=== PATIENT | male | born 1955 | race Caucasian/White ===

== ENCOUNTER → 2020-04-27 14:12 | Outpatient (CLI) | payer MEDICARE, MEDICAID, SELFPAY ==
[2020-04-27 14:28] LABS: Alanine Aminotransferase 56 U/L (12-78); Albumin Level 4.6 g/dl (3.5-5.0); Albumin/Globulin Ratio 1.2 (1.1-1.8); Alkaline Phosphatase 150 U/L (38-126); Anion Gap 18.5 mEq/L (5-15); Aspartate Amino Transferase 44 U/L (17-59); Bilirubin,Total 0.6 mg/dl (0.2-1.3); Blood Urea Nitrogen 24 mg/dl (9-20); Calcium 10.5 mg/dl (8.4-10.2); Carbon Dioxide 25 mmol/L (22.0-30.0); Chloride 96 mmol/L (98-107); Chol/HDL Ratio 6.3 (1-3.5); Cholesterol 292 mg/dl (140-200); Estimated Glomerular Filt Rate 85 ml/min (>60); GFR (African American) 103 ML/MIN (>60); Globulin 3.7 g/dL (1.3-3.2); Glucose 295 mg/dl (74-100); HDL Cholesterol 46 mg/dl (40-60); Potassium 5.5 mmoL/L (3.5-5.1); Sodium 134 mmol/L (136-145); Total Protein,Serum 8.3 g/dl (6.3-8.2); Triglycerides 318 mg/dl (30-150); VLDL Cholesterol 64 mg/dL (0-40)
[2020-04-27 14:39] LABS: Direct LDL Cholesterol 208.85 mg/dL (100-129)
[2020-04-27 21:00] LABS: Hemoglobin A1C 9.8 % (4.0-6.0)
== END ==
PROVIDERS: Visit Provider Family Medicine
DX: E11.9 Type 2 diabetes mellitus without complications (principal); Z79.4 Long term (current) use of insulin
CPT/HCPCS: 80053; 80061; 83036

== ENCOUNTER → 2020-05-14 14:21 | Outpatient (CLI) | payer MEDICARE, MEDICAID, SELFPAY ==
--- NOTE | 2020-05-14 14:30 | XR_ITS ---
PROCEDURE: XR HIP LT 2-3V W/PELVIS CLINICAL INDICATION: hip pain COMPARISON: No exams were available for comparison FINDINGS: No fracture or dislocation is evident. There is very slight decrease in the joint space medially. No significant spurring. IMPRESSION: Minimal osteoarthritic change left hip Dictated b Danilo Ruiz MD 05/14/2020 15:44 Danilo Ruiz MD in OV 05/14/2020 15:44
--- NOTE | 2020-05-14 14:30 | XR_ITS ---
PROCEDURE: XR HIP RT 2-3V W/PELVIS CLINICAL INDICATION: hip pain COMPARISON: No exams were available for comparison FINDINGS: There is very slight decrease in the hip joint space superiorly with minimal osteosclerosis suggesting minimal osteoarthritic change. Small subchondral cyst noted at the acetabular roof laterally. IMPRESSION: Minimal osteoarthritic change right hip Dictated b Danilo Ruiz MD 05/14/2020 15:43 Danilo Ruiz MD in OV 05/14/2020 15:43
== END ==
PROVIDERS: PCP Family Medicine; Visit Provider Family Medicine
DX: M15.4 Erosive (osteo)arthritis (principal)
CPT/HCPCS: 73502

== ENCOUNTER → 2020-09-06 15:33 | Outpatient (CLI) | payer MEDICARE, MEDICAID, SELFPAY ==
[2020-09-06 16:32] LABS: Microalbumin/Creatinine Ratio 129.8
[2020-09-06 16:46] LABS: Creatinine,Urine Random 63 mg/dL (Not Estab.)
== END ==
PROVIDERS: Visit Provider Family Medicine
DX: E11.9 Type 2 diabetes mellitus without complications (principal); Z79.4 Long term (current) use of insulin
CPT/HCPCS: 82043; 82570

== ENCOUNTER → 2020-09-20 13:58 | Outpatient (CLI) | payer MEDICARE, MEDICAID, SELFPAY ==
[2020-09-20 15:36] LABS: Chloride 101 mmol/L (98-107)
[2020-09-20 15:37] LABS: Potassium 5.1 mmoL/L (3.5-5.1); Sodium 136 mmol/L (136-145)
[2020-09-20 15:38] LABS: Basophils % 0.3 % (0.1-2.0); Eosinophils # 0.2 K/mm3 (0.0-0.4); Eosinophils % 1.7 % (0.1-12.0); Hematocrit 46.5 % (42.0-52.0); Hemoglobin 15.1 g/dL (14.1-18.0); Lymphocytes # 1.9 K/mm3 (0.7-4.5); Lymphocytes % 19.7 % (10-50); Mean Corpuscular HGB Conc 32.5 g/dL (31.8-35.4); Mean Corpuscular Hemoglobin 30.6 pg (27.0-31.2); Mean Platelet Volume 8.9 fl (7.4-10.4); Monocytes # 0.5 K/mm3 (0.1-1.0); Monocytes % 4.9 % (1.7-9.3); Neutrophils % 73.5 % (37.0-80.0); Platelet Count 250 K/mm3 (142-424); Red Blood Count 4.94 M/mm3 (4.60-6.20); Red Cell Distribution Width 14.1 % (11.5-17.5); White Blood Count 9.5 K/mm3 (4.8-10.8)
[2020-09-20 15:39] LABS: Alanine Aminotransferase 41 U/L (12-78); Alkaline Phosphatase 104 U/L (38-126); Anion Gap 14.1 mEq/L (5-15); Aspartate Amino Transferase 58 U/L (17-59); Bilirubin,Total 0.6 mg/dl (0.2-1.3); Blood Urea Nitrogen 23 mg/dl (9-20); Carbon Dioxide 26 mmol/L (22.0-30.0); Estimated Glomerular Filt Rate 75 ml/min (>60); GFR (African American) 91 ML/MIN (>60); Uric Acid 9.4 mg/dl (3.5-8.5)
[2020-09-20 15:40] LABS: Albumin Level 4.4 g/dl (3.5-5.0); Albumin/Globulin Ratio 1.3 (1.1-1.8); Calcium 10.4 mg/dl (8.4-10.2); Chol/HDL Ratio 4.5 (1-3.5); Cholesterol 175 mg/dl (140-200); Globulin 3.4 g/dL (1.3-3.2); Glucose 237 mg/dl (74-100); HDL Cholesterol 39 mg/dl (40-60); Total Protein,Serum 7.8 g/dl (6.3-8.2); Triglycerides 233 mg/dl (30-150); VLDL Cholesterol 47 mg/dL (0-40)
[2020-09-20 15:51] LABS: Direct LDL Cholesterol 104.45 mg/dL (100-129)
[2020-09-20 15:57] LABS: T4 (Thyroxine) 9.1 ug/dl (5.53-11.0)
[2020-09-20 15:59] LABS: Erythrocyte Sedimentation Rate 24 mm/hr (0-20)
[2020-09-20 16:10] LABS: Thyroid Stimulating Hormone 3.29 uIU/mL (0.465-4.68)
[2020-09-21 16:45] LABS: Prostate Specific Ag Screen 0.8 ng/ml (0.0-4.0)
[2020-09-22 12:54] LABS: RA Latex Turbid. <10.0 IU/mL (0.0-13.9)
[2020-09-25 20:10] LABS: Antinuclear Antibodies, IFA Negative (.)
[2020-09-27 02:47] LABS: Testosterone, Total, LC/MS 105.1 ng/dL (264.0-916.0)
== END ==
PROVIDERS: Visit Provider Family Medicine
DX: E11.9 Type 2 diabetes mellitus without complications (principal); G89.29 Other chronic pain; M54.9 Dorsalgia, unspecified; F41.9 Anxiety disorder, unspecified; E66.9 Obesity, unspecified; M19.90 Unspecified osteoarthritis, unspecified site; Z12.5 Encounter for screening for malignant neoplasm of prostate; Z79.4 Long term (current) use of insulin
CPT/HCPCS: 80053; 80061; 84402; 84403; 84436; 84443; 84550; 85025; 85651; 86038; 86431; G0103

== ENCOUNTER → 2021-02-25 17:46 | Outpatient (CLI) | payer MEDICARE, MEDICAID, SELFPAY ==
[2021-02-25 18:14] LABS: Basophils # 0.1 K/mm3 (0-0.2); Basophils % 0.6 % (0.1-2.0); Eosinophils # 0.1 K/mm3 (0.0-0.4); Eosinophils % 1.5 % (0.1-12.0); Hematocrit 43.9 % (42.0-52.0); Hemoglobin 14.5 g/dL (14.1-18.0); Lymphocytes # 2.2 K/mm3 (0.7-4.5); Lymphocytes % 25.2 % (10-50); Mean Corpuscular HGB Conc 33.1 g/dL (31.8-35.4); Mean Corpuscular Hemoglobin 30.2 pg (27.0-31.2); Mean Corpuscular Volume 91.2 fl (80-94); Mean Platelet Volume 8.2 fl (7.4-10.4); Monocytes # 0.5 K/mm3 (0.1-1.0); Monocytes % 5.5 % (1.7-9.3); Neutrophils # 5.9 K/mm3 (1.8-7.8); Neutrophils % 67.2 % (37.0-80.0); Platelet Count 250 K/mm3 (142-424); Red Blood Count 4.81 M/mm3 (4.60-6.20); Red Cell Distribution Width 14.2 % (11.5-17.5); White Blood Count 8.7 K/mm3 (4.8-10.8)
[2021-02-25 19:38] LABS: Alanine Aminotransferase 50 U/L (12-78); Albumin Level 4.7 g/dl (3.5-5.0); Albumin/Globulin Ratio 1.5 (1.1-1.8); Alkaline Phosphatase 129 U/L (38-126); Anion Gap 14.6 mEq/L (5-15); Aspartate Amino Transferase 46 U/L (17-59); Bilirubin,Total 0.5 mg/dl (0.2-1.3); Blood Urea Nitrogen 30 mg/dl (9-20); Carbon Dioxide 26 mmol/L (22.0-30.0); Chloride 101 mmol/L (98-107); Cholesterol 252 mg/dl (140-200); Estimated Glomerular Filt Rate 67 ml/min (>60); GFR (African American) 81 ML/MIN (>60); Globulin 3.2 g/dL (1.3-3.2); HDL Cholesterol 42 mg/dl (40-60); Potassium 4.6 mmoL/L (3.5-5.1); Sodium 137 mmol/L (136-145); Total Protein,Serum 7.9 g/dl (6.3-8.2); Triglycerides 312 mg/dl (30-150); VLDL Cholesterol 62 mg/dL (0-40)
[2021-02-25 19:50] LABS: Direct LDL Cholesterol 180.29 mg/dL (100-129)
[2021-02-25 19:57] LABS: T4 (Thyroxine) 7.5 ug/dl (5.53-11.0)
[2021-02-25 20:10] LABS: Thyroid Stimulating Hormone 1.77 uIU/mL (0.465-4.68)
[2021-02-25 20:11] LABS: Calcium 9.9 mg/dl (8.4-10.2); Glucose 234 mg/dl (74-100)
[2021-02-25 20:38] LABS: Hemoglobin A1C 8.4 % (4.0-6.0)
== END ==
PROVIDERS: Visit Provider Family Medicine
DX: E11.9 Type 2 diabetes mellitus without complications (principal); G89.29 Other chronic pain; M54.9 Dorsalgia, unspecified; E66.9 Obesity, unspecified; F41.9 Anxiety disorder, unspecified; Z68.41 Body mass index [BMI] 40.0-44.9, adult; Z79.84 Long term (current) use of oral hypoglycemic drugs
CPT/HCPCS: 80053; 80061; 83036; 84436; 84443; 85025

== ENCOUNTER → 2021-09-26 14:10 | Outpatient (CLI) | payer MEDICARE, MEDICAID, SELFPAY ==
[2021-09-26 20:14] LABS: Amphetamine/Metha Screen,Urine Negative ng/ml (<1000)
[2021-09-26 20:15] LABS: Barbiturates Screen,Urine Negative ng/ml (<200)
[2021-09-26 20:16] LABS: Benzodiazepines Screen,Urine Negative ng/ml (<200); Cannabinoid Screen,Urine Negative ng/ml (<50)
[2021-09-26 20:17] LABS: Cocaine Screen,Urine Negative ng/ml (<300); Methadone Screen,Urine Negative ng/ml (<300)
[2021-09-26 20:18] LABS: Opiate Screen,Urine Negative ng/ml (<300)
[2021-09-26 20:19] LABS: Phencyclidine Screen,Urine Negative ng/ml (<25)
== END ==
PROVIDERS: Visit Provider Family Medicine
DX: G89.29 Other chronic pain (principal); M54.9 Dorsalgia, unspecified
CPT/HCPCS: 80305

== ENCOUNTER → 2021-10-11 13:38 | Outpatient (CLI) | payer MEDICARE, MEDICAID, SELFPAY ==
[2021-10-11 14:24] LABS: Hemoglobin A1C 9.3 % (4.0-6.0)
== END ==
PROVIDERS: Visit Provider Family Medicine
DX: E11.9 Type 2 diabetes mellitus without complications (principal); Z79.4 Long term (current) use of insulin
CPT/HCPCS: 83036

== ENCOUNTER → 2022-01-20 10:08 | Outpatient (CLI) | payer MEDICARE, MEDICAID, SELFPAY | PROVIDERS: Visit Provider Internal Medicine | DX: Z11.52 Encounter for screening for COVID-19 (principal) | CPT/HCPCS: C9803; U0003; U0005 ==

== ENCOUNTER 2022-01-22 09:48 | Day surgery (SDC) | payer MEDICARE, MEDICAID, SELFPAY ==
[2022-01-15 12:42] VITALS: BMI 43.2
[2022-01-22 10:01] VITALS: BP 181/90; PULSE 75; RESP 18; TEMP 36.2; O2SAT 94
--- NOTE | 2022-01-22 10:25 | HMH.ANESCL ---
[facility] Anesthesia Checklist - Patient Identification Patient Identification: Arm Band - Structural Data Admitted From: Home Planned Operative Procedure/s: Colonoscopy Consent for Planned Operative Procedure(s) Verified: Yes - NPO Status Verified Time NPO: 05:30 (Prep) - Airway Assessment C-Spine Mobility Assessed: Yes TMJ Mobility Assessed: Yes Dentition: Good Dentition - Neurological Assessment Level of Consciousness: Awake Hx Seizures: No Numbness or tingling in extremities: Yes - Anesthesia Plan Anesthesia Risk discussed: Yes Anesthesia Plan: Verified ASA Class: III Anesthesia Type: MAC [facility] History I have reviewed the patient's past medical history: Yes Medical History: Reports:: Anxiety, Depression, Diabetes Mellitus Type 2, Hyperlipidemia, Hypertension Denies:: Cancer, Diabetes Mellitus Type 1, Internal Pacemaker, MRSA, Seizures *Have you ever received a pneumonia vaccine?: Yes *Have you received a flu vaccine this season?: Yes Other Medical History: Reports: Arthritis Anesthesia experience/problems:: None Laterality Cases: Bilateral: Carpal Tunnel Release Other Surgeries: No: Pacemaker Amputation: Yes - *Social History Last grade of school completed: GED Smoking Status: Never smoker Alcohol Intake: never Substance Use Type: denies use *Occupational Status:: retired Housing: house Household Members: spouse *Travel in the last 8 weeks: None - Psychiatric History Pschychiatric History:: Reports:: Anxiety, Depression Family Hx:: Unable to obtain
[2022-01-22 11:10] VITALS: O2SAT 94
--- NOTE | 2022-01-22 11:29 | HMH.SCOPE ---
- Procedure: Date: 01/22/22 Patient Date of :: 1955 Procedure Performed:: Colonoscopy Indications:: The patient is a 66 year old that presents for screening colonoscopy Performing Provider:: Roberto Madison MD Referring Provider:: Alejandro Carlisle MD Sedation:: See RN records Procedure:: After placing the patient in the left lateral decubitus position, the colonoscopy was gently inserted into the rectum and under direct visualization advanced to the cecum which was identified by transillumination in the right lower quadrant, identification of the ileocecal valve, appendiceal orifice, and cecal strap. Color, texture, mucosa, and anatomy of the colon were carefully examined with the scope. Findings:: Anal canal: normal Rectum: normal Sigmoid colon: mild diverticulosis Descending colon: normal without polyps or inflammatory changes Splenic flexure: normal Transverse colon: normal without polyps or inflammatory changes Hepatic flexure: normal Ascending colon: normal without polyps or inflammatory changes Cecum: normal Terminal ileum: not visualized Recommendations:: Higher fiber diet Repeat colonoscopy in 10 years or sooner if clinically indicated Complications:: None Estimated blood obtained (mL): 0
[2022-01-22 11:32] VITALS: BP 139/86; PULSE 80; RESP 16; TEMP 36.3; O2SAT 99
[2022-01-22 11:42] VITALS: BP 125/81; PULSE 69; RESP 16; TEMP 36.3; O2SAT 93
[2022-01-22 11:52] VITALS: BP 135/76; PULSE 72; RESP 18; TEMP 36.3; O2SAT 95
[2022-01-22 12:02] VITALS: BP 140/80; PULSE 70; RESP 18; TEMP 36.3; O2SAT 70
[2022-07-03 10:59] LABS: POC Glucose,Bedside 157 (70-110)
== END 2022-01-22 12:02 | disposition home or self-care (01) ==
LOC: OUTP 09:50
PROVIDERS: PCP Family Medicine; Visit Provider Internal Medicine
PROC: 0DJD8ZZ Inspection of Lower Intestinal Tract, Via Natural or Artificial Opening Endoscopic (ICD-10-PCS; CPT 45378; principal; 2022-01-22 10:30)
DX: Z12.11 Encounter for screening for malignant neoplasm of colon (principal); K57.30 Diverticulosis of large intestine without perforation or abscess without bleeding; F41.9 Anxiety disorder, unspecified; F32.A Depression, unspecified; E11.9 Type 2 diabetes mellitus without complications; E78.5 Hyperlipidemia, unspecified; I10 Essential (primary) hypertension; M19.90 Unspecified osteoarthritis, unspecified site; Z79.4 Long term (current) use of insulin; Z79.51 Long term (current) use of inhaled steroids; Z79.899 Other long term (current) drug therapy
CPT/HCPCS: G0121; 82962

== ENCOUNTER 2022-03-14 08:26 | Emergency (ER) | payer MEDICARE, MEDICAID, SELFPAY ==
[2022-03-14 08:33] VITALS: BP 149/80; PULSE 64; RESP 16; TEMP 37; O2SAT 98; BMI 41.8
[2022-03-14 08:40] VITALS: BP 149/80; PULSE 64; RESP 16; TEMP 37; O2SAT 98; BMI 42.0
--- NOTE | 2022-03-14 08:48 | HMH.EDUTC ---
[facility] [place] Impression: Pain of right clavicle, Tendinopathy of right shoulder Right shoulder pain Qualifiers: Chronicity: acute Qualified Code(s): M25.511 - Pain in right shoulder Disposition: Home, Self-Care Condition on Discharge: Good Instructions: Shoulder Tendinopathy, DI for Shoulder Pain Additional Instructions: Rest the extremity. Take ibuprofen for pain. I sent in a prescription to your pharmacy. Follow up with Dr. Dumont (orthopedics). I put in a referral but you need to call his office and schedule an appointment. Follow up with your regular doctor. GO TO THE ER FOR ANY WORSENING SYMPTOMS Prescriptions: Ibuprofen [Ibuprofen 600mg Tablet] 600 mg PO Q6HP PRN #30 tab PRN Reason: Mild Pain Transmission Status: Received by [facility] Referrals: Alejandro Carlisle MD [Primary Care Provider] - Ventura Dumont MD [Staff Physician] - Time of Disposition: 09:30 Medical Decision Making - Medical Records Medical records reviewed: No: I reviewed the patient's medical records. - Prashant Inquiry Pt receiving controlled substance: No Vital Signs: 03/14/22 08:33 03/14/22 08:40 03/14/22 09:21 Temperature 98.6 F 98.6 F 98.6 F Temperature Source Oral Oral Pulse Rate 64 Pulse Rate [Right] 64 64 Respiratory Rate 16 16 16 Blood Pressure 149/80 H Blood Pressure [Right Arm] 149/80 H 149/80 H Blood Pressure Mean [Right Arm] 103 103 Blood Pressure Source [Right Arm] Automatic Cuff Automatic Cuff Blood Pressure Position [Right Arm] Sitting Sitting 02 Sat by Pulse Oximetry 98 98 Oxygen Delivery Method Room Air Room Air - Radiology Data #1 Image(s): Shoulder Image Reviewed: Yes I reviewed the patient's radiology image, Yes I have reviewed radiologist's interpretation Preliminary Findings: No Fracture Seen FINAL REPORT CLINICAL HISTORY: painful to move,feel like it catching no known injury FINDINGS: RIGHT SHOULDER Three views demonstrate no acute fracture or dislocation. There is mild acromioclavicular and mild glenohumeral joint degenerative change. The visualized bony structures are well aligned. No soft tissue abnormality is seen. IMPRESSION: Degenerative changes with no acute process. Reviewed, Interpreted and Dictated by Jesús Christiansen III, MD Transcribed by Sandi Easton Authenticated and [facility] HPI - General Stated complaint: right shoulder pain, no accident Time Seen by Provider: 03/14/22 08:48 Mode of Arrival: Ambulatory Source of Information: Patient Limitations: No Limitations Description of Symptoms (Recalled from Triage Doc. by RN): Pt advises he is having pain in his right collar bone and shoulder. Advises it has been hurting for a couple of days and it feels like there is something grinding when he moves it. Denies any known injury - History of Present Illness Provider Complaint: He has been having right shoulder pain that is worse with movement for the past 2 weeks. He denies any injury. The pain has worsened is why he came in today. He has a history of rotator cuff surgery in that shoulder about 15 years ago. He has had no trouble until now. He denies any chest pain. He denies any other complaints. - Related Data Home Medications Medication Instructions Recorded Confirmed albuterol sulfate 90 mcg/actuation 90 mcg INHALATION DAILY 10/11/21 02/21/22 aerosol inhaler Atorvastatin Calcium [Lipitor 40mg 40 mg PO DAILY 01/15/22 02/21/22 Tab] Duloxetine HCl [Cymbalta] 60 mg PO DAILY 01/15/22 02/21/22 Insulin Degludec [Tresiba See Rx Instructions .ROUTE .COMPLEX 01/15/22 02/21/22 FlexTouch U-200] Meloxicam See Rx Instructions .ROUTE .COMPLEX 01/15/22 02/21/22 Ropinirole HCl See Rx Instructions .ROUTE .COMPLEX 01/15/22 02/21/22 Sodium, Potassium,Mag Sulfates 16 oz PO ONCE 01/15/22 02/21/22 [Suprep Bowel Prep Kit]
--- NOTE | 2022-03-14 08:53 | XR_ITS ---
FINAL REPORT CLINICAL HISTORY: painful to move,feel like it catching no known injury FINDINGS: RIGHT SHOULDER Three views demonstrate no acute fracture or dislocation. There is mild acromioclavicular and mild glenohumeral joint degenerative change. The visualized bony structures are well aligned. No soft tissue abnormality is seen. IMPRESSION: Degenerative changes with no acute process. Reviewed, Interpreted and Dictated by Jesús Christiansen III, MD Transcribed by Sandi Easton Authenticated and [facility]
[2022-03-14 09:21] VITALS: BP 149/80; PULSE 64; RESP 16; TEMP 37; O2SAT 98
== END 2022-03-14 09:34 | disposition home or self-care (01) ==
PROVIDERS: Emergency Provider Nurse Practitioner Family; PCP Family Medicine
DX: M25.511 Pain in right shoulder (principal); Z79.4 Long term (current) use of insulin; Z79.51 Long term (current) use of inhaled steroids; Z79.899 Other long term (current) drug therapy; Z87.39 Personal history of other diseases of the musculoskeletal system and connective tissue; F41.9 Anxiety disorder, unspecified; F32.A Depression, unspecified; E11.9 Type 2 diabetes mellitus without complications; E78.5 Hyperlipidemia, unspecified; I10 Essential (primary) hypertension
CPT/HCPCS: 73030; 99283

== ENCOUNTER → 2022-03-21 14:50 | Outpatient (CLI) | payer MEDICARE, MEDICAID, SELFPAY ==
[2022-03-21 13:55] LABS: Hemoglobin A1C 9.3 % (4.0-6.0)
== END ==
PROVIDERS: PCP Family Medicine; Visit Provider Family Medicine
DX: E11.9 Type 2 diabetes mellitus without complications (principal); Z79.4 Long term (current) use of insulin
CPT/HCPCS: 83036

== ENCOUNTER → 2022-11-04 10:00 | Outpatient (CLI) | payer MEDICARE, MEDICAID, SELFPAY ==
[2022-11-04 19:35] LABS: Alanine Aminotransferase 25 U/L (12-78); Albumin Level 4.1 g/dl (3.5-5.0); Albumin/Globulin Ratio 1.4 (1.1-1.8); Alkaline Phosphatase 105 U/L (38-126); Aspartate Amino Transferase 32 U/L (17-59); Bilirubin,Total 0.5 mg/dl (0.2-1.3); Blood Urea Nitrogen 20 mg/dl (9-20); Calcium 9.2 mg/dl (8.4-10.2); Carbon Dioxide 26 mmol/L (22.0-30.0); Chloride 104 mmol/L (98-107); Chol/HDL Ratio 4.2 (1-3.5); Cholesterol 160 mg/dl (140-200); Estimated Glomerular Filt Rate 75 ml/min (>60); GFR (African American) 90 ML/MIN (>60); Glucose 190 mg/dl (74-100); HDL Cholesterol 38 mg/dl (40-60); Sodium 137 mmol/L (136-145); Total Protein,Serum 7.1 g/dl (6.3-8.2); Triglycerides 139 mg/dl (30-150); VLDL Cholesterol 28 mg/dL (0-40)
[2022-11-04 19:40] LABS: Hemoglobin A1C 8.8 % (4.0-6.0)
[2022-11-04 19:46] LABS: Direct LDL Cholesterol 95.22 mg/dL (100-129)
== END ==
PROVIDERS: PCP Family Medicine; Visit Provider Family Medicine
DX: E11.51 Type 2 diabetes mellitus with diabetic peripheral angiopathy without gangrene (principal); Z79.4 Long term (current) use of insulin
CPT/HCPCS: 80053; 80061; 83036

== ENCOUNTER → 2023-03-23 09:31 | Outpatient (CLI) | payer MEDICARE, MEDICAID, SELFPAY ==
[2023-03-23 18:33] LABS: Alanine Aminotransferase 26 U/L (12-78); Albumin Level 4.1 g/dl (3.5-5.0); Albumin/Globulin Ratio 1.3 (1.1-1.8); Alkaline Phosphatase 146 U/L (38-126); Anion Gap 18.9 mEq/L (5-15); Aspartate Amino Transferase 31 U/L (17-59); Bilirubin,Total 0.5 mg/dl (0.2-1.3); Blood Urea Nitrogen 20 mg/dl (9-20); Calcium 9.4 mg/dl (8.4-10.2); Carbon Dioxide 26 mmol/L (22.0-30.0); Chloride 97 mmol/L (98-107); Chol/HDL Ratio 4.2 (1-3.5); Cholesterol 157 mg/dl (140-200); Estimated Glomerular Filt Rate 84 ml/min (>60); GFR (African American) 102 ML/MIN (>60); Globulin 3.2 g/dL (1.3-3.2); Glucose 258 mg/dl (74-100); HDL Cholesterol 37 mg/dl (40-60); Potassium 4.9 mmoL/L (3.5-5.1); Sodium 137 mmol/L (136-145); Total Protein,Serum 7.3 g/dl (6.3-8.2); Triglycerides 222 mg/dl (30-150); VLDL Cholesterol 44 mg/dL (0-40)
[2023-03-23 18:39] LABS: Hemoglobin A1C 8.4 % (4.0-6.0)
[2023-03-23 18:43] LABS: Direct LDL Cholesterol 90.12 mg/dL (100-129)
== END ==
PROVIDERS: PCP Family Medicine; Visit Provider Family Medicine
DX: Z76.0 Encounter for issue of repeat prescription (principal); E11.51 Type 2 diabetes mellitus with diabetic peripheral angiopathy without gangrene; Z79.4 Long term (current) use of insulin
CPT/HCPCS: 80053; 80061; 83036

== ENCOUNTER → 2023-04-09 11:40 | Outpatient (CLI) | payer MEDICARE, MEDICAID, SELFPAY ==
[2023-04-09 19:22] LABS: Lipase 138 U/L (23-300)
[2023-04-09 19:23] LABS: Basophils % 0.3 % (0.1-2.0); Eosinophils # 0.2 K/mm3 (0.0-0.4); Eosinophils % 1.7 % (0.1-12.0); Hematocrit 45.1 % (42.0-52.0); Hemoglobin 14.5 g/dL (14.1-18.0); Lymphocytes # 1.9 K/mm3 (0.7-4.5); Lymphocytes % 18.8 % (10-50); Mean Corpuscular HGB Conc 32.3 g/dL (31.8-35.4); Mean Corpuscular Hemoglobin 29.3 pg (27.0-31.2); Mean Corpuscular Volume 90.7 fl (80-94); Mean Platelet Volume 9.3 fl (7.4-10.4); Monocytes # 0.4 K/mm3 (0.1-1.0); Monocytes % 4.3 % (1.7-9.3); Neutrophils # 7.8 K/mm3 (1.8-7.8); Platelet Count 279 K/mm3 (142-424); Red Blood Count 4.97 M/mm3 (4.60-6.20); Red Cell Distribution Width 13.9 % (11.5-17.5); White Blood Count 10.4 K/mm3 (4.8-10.8)
== END ==
PROVIDERS: PCP Family Medicine; Visit Provider Family Medicine
DX: R10.9 Unspecified abdominal pain (principal)
CPT/HCPCS: 83690; 85025

== ENCOUNTER → 2023-07-27 08:23 | Outpatient (CLI) | payer MEDICARE, MEDICAID, SELFPAY ==
[2023-07-27 19:01] LABS: Chloride 97 mmol/L (98-107); Potassium 4.2 mmoL/L (3.5-5.1); Sodium 134 mmol/L (136-145)
[2023-07-27 19:04] LABS: Alanine Aminotransferase 28 U/L (12-78); Albumin Level 3.3 g/dl (3.5-5.0); Albumin/Globulin Ratio 1.1 (1.1-1.8); Alkaline Phosphatase 121 U/L (38-126); Anion Gap 11.2 mEq/L (5-15); Aspartate Amino Transferase 36 U/L (17-59); Bilirubin,Total 0.5 mg/dl (0.2-1.3); Blood Urea Nitrogen 22 mg/dl (9-20); Carbon Dioxide 30 mmol/L (22.0-30.0); Estimated Glomerular Filt Rate 43 ml/min (>60); GFR (African American) 52 ML/MIN (>60); Globulin 3.1 g/dL (1.3-3.2); Total Protein,Serum 6.4 g/dl (6.3-8.2)
[2023-07-27 19:05] LABS: Calcium 8.9 mg/dl (8.4-10.2); Glucose 156 mg/dl (74-100)
[2023-07-27 19:38] LABS: Basophils # 0.1 K/mm3 (0-0.2); Basophils % 0.4 % (0.1-2.0); Eosinophils # 0.1 K/mm3 (0.0-0.4); Hematocrit 37.3 % (42.0-52.0); Hemoglobin 12.5 g/dL (14.1-18.0); Lymphocytes # 1.9 K/mm3 (0.7-4.5); Lymphocytes % 15.5 % (10-50); Mean Corpuscular HGB Conc 33.6 g/dL (31.8-35.4); Mean Corpuscular Hemoglobin 30.3 pg (27.0-31.2); Mean Platelet Volume 8.9 fl (7.4-10.4); Monocytes # 0.9 K/mm3 (0.1-1.0); Monocytes % 7.2 % (1.7-9.3); Neutrophils % 75.8 % (37.0-80.0); Platelet Count 279 K/mm3 (142-424); Red Blood Count 4.15 M/mm3 (4.60-6.20); White Blood Count 11.9 K/mm3 (4.8-10.8)
== END ==
PROVIDERS: PCP Family Medicine; Visit Provider Family Medicine
DX: E11.51 Type 2 diabetes mellitus with diabetic peripheral angiopathy without gangrene (principal); M79.671 Pain in right foot; Z79.4 Long term (current) use of insulin; L03.115 Cellulitis of right lower limb; B96.89 Other specified bacterial agents as the cause of diseases classified elsewhere
CPT/HCPCS: 80053; 83036; 85025; 87070; 87205

== ENCOUNTER → 2023-08-13 23:37 | Outpatient (CLI) | payer MEDICARE, MEDICAID, SELFPAY ==
[2023-08-13 22:04] LABS: Alanine Aminotransferase 23 U/L (12-78); Albumin Level 4.1 g/dl (3.5-5.0); Alkaline Phosphatase 111 U/L (38-126); Anion Gap 18.3 mEq/L (5-15); Aspartate Amino Transferase 26 U/L (17-59); Bilirubin,Total 0.2 mg/dl (0.2-1.3); Blood Urea Nitrogen 29 mg/dl (9-20); Calcium 10.2 mg/dl (8.4-10.2); Carbon Dioxide 26 mmol/L (22.0-30.0); Chloride 97 mmol/L (98-107); Estimated Glomerular Filt Rate 74 ml/min (>60); GFR (African American) 90 ML/MIN (>60); Glucose 185 mg/dl (74-100); Potassium 5.3 mmoL/L (3.5-5.1); Sodium 136 mmol/L (136-145); Total Protein,Serum 8.1 g/dl (6.3-8.2)
== END ==
PROVIDERS: PCP Family Medicine; Visit Provider Family Medicine
DX: L97.519 Non-pressure chronic ulcer of other part of right foot with unspecified severity (principal)
CPT/HCPCS: 80053

== ENCOUNTER 2023-11-05 23:01 | Outpatient (CLI) | payer MEDICARE, MEDICAID, SELFPAY ==
[2023-11-05 19:22] LABS: Alanine Aminotransferase 21 U/L (12-78); Albumin Level 4.2 g/dl (3.5-5.0); Albumin/Globulin Ratio 1.2 (1.1-1.8); Alkaline Phosphatase 107 U/L (38-126); Anion Gap 13.5 mEq/L (5-15); Aspartate Amino Transferase 27 U/L (17-59); Bilirubin,Total 0.4 mg/dl (0.2-1.3); Blood Urea Nitrogen 18 mg/dl (9-20); Calcium 9.8 mg/dl (8.4-10.2); Carbon Dioxide 25 mmol/L (22.0-30.0); Chloride 104 mmol/L (98-107); Estimated Glomerular Filt Rate 74 ml/min (>60); GFR (African American) 90 ML/MIN (>60); Globulin 3.6 g/dL (1.3-3.2); Glucose 110 mg/dl (74-100); Potassium 4.5 mmoL/L (3.5-5.1); Sodium 138 mmol/L (136-145); Total Protein,Serum 7.8 g/dl (6.3-8.2)
[2023-11-05 19:47] LABS: Prostate Specific Ag Screen 1.2 ng/ml (0.0-4.0)
[2023-11-05 19:56] LABS: Hemoglobin A1C 7.4 % (4.0-6.0)
== END 2023-11-05 23:59 ==
LOC: LAB.DROPOF 23:01
PROVIDERS: PCP Family Medicine; Visit Provider Family Medicine
DX: E11.9 Type 2 diabetes mellitus without complications (principal); Z12.5 Encounter for screening for malignant neoplasm of prostate; Z79.4 Long term (current) use of insulin; Z79.84 Long term (current) use of oral hypoglycemic drugs; Z79.85 Long-term (current) use of injectable non-insulin antidiabetic drugs
CPT/HCPCS: 80053; 83036; G0103

== ENCOUNTER 2024-02-05 18:00 | Outpatient (CLI) | payer MEDICARE, MEDICAID, SELFPAY ==
[2024-02-05 18:45] LABS: Hemoglobin A1C 9.4 % (4.0-6.0)
[2024-02-05 18:55] LABS: Alanine Aminotransferase 22 U/L (12-78); Albumin Level 4.2 g/dl (3.5-5.0); Albumin/Globulin Ratio 1.1 (1.1-1.8); Alkaline Phosphatase 113 U/L (38-126); Anion Gap 11.8 mEq/L (5-15); Aspartate Amino Transferase 29 U/L (17-59); Bilirubin,Total 0.6 mg/dl (0.2-1.3); Blood Urea Nitrogen 19 mg/dl (9-20); Calcium 10.2 mg/dl (8.4-10.2); Carbon Dioxide 30 mmol/L (22.0-30.0); Chloride 101 mmol/L (98-107); Estimated Glomerular Filt Rate 67 ml/min (>60); GFR (African American) 81 ML/MIN (>60); Globulin 3.8 g/dL (1.3-3.2); Glucose 237 mg/dl (74-100); Potassium 4.8 mmoL/L (3.5-5.1); Sodium 138 mmol/L (136-145)
== END 2024-02-05 23:59 | disposition home or self-care (01) ==
LOC: LAB.DROPOF 02-06 09:17
PROVIDERS: PCP Family Medicine; Visit Provider Family Medicine
DX: E11.51 Type 2 diabetes mellitus with diabetic peripheral angiopathy without gangrene (principal); Z79.4 Long term (current) use of insulin; Z79.85 Long-term (current) use of injectable non-insulin antidiabetic drugs
CPT/HCPCS: 80053; 83036

== ENCOUNTER 2025-06-28 10:39 | Outpatient (CLI) | payer MEDICARE, MEDICAID, SELFPAY ==
--- OUTSIDE RECORDS SUMMARY | 2025-05-10 08:15 | XMS_ITS | Encounter Summary ---
Author Organization [facility] Address [address] [place] [address] Care Team Providers Care Sausage Smoker Name Role Phone Antonino Tavarez DPM Unavailable Alejandro Carlisle MD Primary Care Provider [phone] Reason for Visit * Reason Comments Post-Operative Exam Encounter Details Date Type Department Care Team (Late st Contact Info) Description 05/10/2025 8:15 AM EDT Office Visit [facility] [address] [place] [address] Eric Whitten APRN [address] [place] [address] Carpal tunnel syndrome, left (Primary Dx); Cubital tunnel syndrome, left Social History Tobacco Use Types Packs/Day Years Used Date Smoking Tobacco: Never Smokeless Tobacco: Never Alcohol Use Standard Drinks/Week Comments No 0 (1 standard drink = 0.6 oz pur e alcohol) [facility] Utilities Answer Date Recorded In the past 12 months has e electric, gas, oil, or water company threatened to shut off services in your home? No 01/26/2024 Overall Financial Resource Strain (CARDIA) Answe r Date Recorded How hard is it for you to pa y for the very basics like food, housing, medical care, and heating? Not hard at all 01/26/2024 PHQ-2 Answer Date Recorded PHQ-2 Total Score 0 01/26/2024 [facility] of Occupat ional Health - Occupational Stress Questionnaire Answer Date Recorded Do you feel stress - tense, restless, nervous, or anxious, or unable to sleep at night because your mind is troubled all the time - these days? Not at all 01/26/2024 Exercise Vital Sign Answer Date Recorde d On average, how many days pe r week do you engage in moderate to strenuous exercise (like a brisk walk)? 0 days 01/26/2024 On average, how many minutes do you engage in exercise at this level? 0 min 01/26/2024 Hunger Vital Sign Answer Date Recorded Within the past 12 months, y ou worried that your food would run out before you got the money to buy more. Never true 01/26/20 24 Within the past 12 months, t he food you bought just didn't last and you didn't have money to get more. Never true 01/26/2024 PRAPARE - Transportation Answer Date Re corded In the past 12 months, has l ack of transportation kept you from medical appointments or from getting medications? No 09/04 In the past 12 months, has l ack of transportation kept you from meetings, work, or from getting things needed for daily living? No 09/17/2023 [facility] IP Transportation Answer D ate Recorded In the past 12 months, has l ack of reliable transportation kept you from medical appointments, meetings, work or from getting things needed for daily living? No 01/26/2024 Sex and Gender Information Value Date Recorded Sex Assigned at Not on file Legal Sex Male 4:02 PM EDT Gender Identity Not on file Sexual Orientation Not on file documented as of this encounter Functional Status * Is the person deaf or does he/she have serious difficulty hearing? Answer Date of Assessment Author No 01/31/2024 10:20 AM Tali Villanueva RN * Is the person blind or does he/she have serious difficulty seeing even when wearing glasses? Answer Date of Assessment Author No 01/31/2024 10:20 AM Tali Villanueva RN * Does this person have serious difficulty walking or climbing stairs? Answer Date of Assessment Author Yes 01/31/2024 10:20 AM Tali Villanueva, JEFFREY * Does this person have difficulty dressing or bathing? Answer Date of Assessment Author No 01/31/2024 10:20 AM EDT Tali Easton RN * Because of a physical, mental or emotional condition, does this person have difficulty doing errands alone such as visiting a doctor's office or shopping? Answer Date of Assessment Author Yes 01/31/2024 10:20 AM EDT Tali Easton RN documented as of this encounter Mental Status * Because of a physical, mental or emotional condition, does this person have serious difficulty concentrating, remembering or making decisions? Answer Entry Date Author No 01/31/2024 10:20 AM EDT Tali Easton RN documented in this encounter Progress Notes * Eric Whitten APRN - 05/10/2025 8:15 AM EDT Images from the original note were not included. Chief Complaint: Cubital Tunnel Release / Nerve Transposition / Decompression - Left and Carpal Tunnel Release - Left DOS: 04/27/2025 History: Does report improvement of the symptoms along the dorsal ulnar sensory nerve distribution but stillhaving some numbness tingling of the thumb and index finger. Reports possible minimal improvement of his preoperative numbness tingling. Physical Exam: Incision is healing well, sutures in place No signs of infection Neurologically intact Plan: Sutures removed. Ok to shower. No bath/pools for one more week. Discussed and provided handout on scar massage and pillar pain. Home hand therapy program given to patient. No indication for formal hand therapy at this time - if patient's ROM not returned to baseline in 2weeks, patient will call for referral to hand therapy. I discussed the prolonged nature of recovery with nerve compression specifically along the ulnar nerve but as well as the median nerve. I discussed full result of surgery not until 12 to 18 months. He expressed understanding Follow-up in 3 months for evaluation The supervising/collaborating provider for the technical component of the x-rays is Dr. Latif. and Hand & Upper Extremity Please note that this software test analyst was created using voice recognition software. Any errors are unintentional and may be due to voice recognition software test analyst. documented in this encounter Plan of Treatment Not on file documented as of this encounter Goals Goal Patient Goal Type Associated Problems Recent Progress Patient-Stated? Author Wound Healing General On track(2022 9:11 AM EST) Alyson Salcido RN Note: Wound Care Goals #10, #11 right calcaneous Patient is an active participant in their wound care plan. Patient is attending wound care visits regularly as recommended by physician. Patient is following instructions on treatment plan including follow up appointments, dressing change recommendations, pressure relief if applicable, smoking cessation if applicable, monitoring of blood sugar and diet. Patient notifies wound care staff of any problems. Wound volume reduction goals 50% by week 4 50% by week 8 80% by week 12 100% by week 14 Nursing Diagnosis: Impairment of skin integrity as evidence by open wound. Risk for infection related to open wound. Nursing Interventions to assist with healing of Diabetic Wounds Assess pain status. Assess wound size, isela wound, drainage and odor. Educate patient and caregivers on signs and symptoms of infection, wound care and importance of prompt treatment. Assess patient/caregiver level of knowledge regarding diabetes, risk factors and diabetic foot care. Assess for peripheral edema. If present , measure ankle, calf and foot circumference on initial visit and as indicated. Assess pedal pulses on each visit. Use doppler if unable to palpate dorsalis pedal or posterior tibial pulses. Obtain initial physician orders for Diabetic Wounds to include HgbA1C, prealbumin, offloading, ankle-brachial index per vascular lab and appropriate dressing to maintain microenvironment conducive to healing. Assess for signs and symptoms of peripheral neuropathy weekly. Refer to PCP and/or Gas Meter Checker, Vascular Specialist as indicated. Monitor patient compliance with wound care, diabetes management and proper offloading. documented as of this encounter Visit Diagnoses Diagnosis Carpal tunnel syndrome, left- Primary Carpal tunnel syndrome Cubital tunnel syndrome, left documented in this encounter Care Teams Sausage Smoker Relationship Specialty Start Date End Date Alejandro Carlisle MD [address] [facility] [address] [place] [address] PCP - General Family Medicine 10/20/22 Antonino Tavarez DPM [address] [facility] [address] [place] [address] Lobster Catcher-Surgery, Foot & Ankle 10/21/16 documented as of this encounter
--- OUTSIDE RECORDS SUMMARY | 2025-05-13 09:15 | XMS_ITS | Encounter Summary ---
Author Organization [facility] Address [address] [id number] Care Team Providers Care Concrete Rubber Name Role Phone Antonino Tavarez DPM Unavailable [phone] Alejandro Carlisle MD Primary Care Provider [phone] Reason for Visit * Reason Comments Post-op Problem Encounter Details Date Type Department Care Team (Late st Contact Info) Description 05/13/2025 9:15 AM EDT Office Visit [facility] [place] [address] Clifford Matthews PA [address] [place] [address] Left arm pain (Primary Dx); Status post surgery Social History Tobacco Use Types Packs/Day Years Used Date Smoking Tobacco: Never Smokeless Tobacco: Never Alcohol Use Standard Drinks/Week Comments No 0 (1 standard drink = 0.6 oz pur e alcohol) [facility] Utilities Answer Date Recorded In the past 12 months has [email or web address] electric, gas, oil, or water [email or web address] threatened to shut off services in your home? No 01/26/2024 Overall Financial Resource Strain (CARDIA) Answe r Date Recorded How hard is it for you to pa y for the very basics like food, housing, medical care, and heating? Not hard at all 01/26/2024 PHQ-2 Answer Date Recorded PHQ-2 Total Score 0 01/26/2024 [facility] [place] of Occupat ional Health - Occupational Stress [...] things needed for daily living? No 09/17/2023 [facility] IP Transportation Answer D ate Recorded In [...] Assessment Author No 01/31/2024 10:20 AM Tali Villanueva, JEFFREY * Is the person blind or does [...] Assessment Author No 01/31/2024 10:20 AM Tali Villanueva, JEFFREY * Because of a physical, mental or [...] documented in this encounter Progress Notes * Clifford Matthews PA - 05/13/2025 9:15 AM EDT Images from the original note were not included. Clifford Matthews PA-C Orthopaedic Trauma and Foot & Ankle Surgery [facility] [phone] Nicanor Cesar Cong CC: Incision to left elbow open HPI: 69-year-old male comes urgent care with concerns for wound dehiscence. He is status post left open carpal tunnel release, left cubital tunnel release by Dr. Latif 04/27/2025. He tells me last night he noticed drainage and opening to the incision over his elbow. He presents today for evaluation. PHYSICAL EXAMINATION: General: Well appearing with appropriate affect. No acute distress. Skin: Skin is warm and dry. Color natural. See below for specific extremity. Neuro: Alert and oriented to person, place and time. Normal neurosensory response to touch. Pulmonary: Chest expansion appears symmetric and unlabored. Cardiovascular: No signs of peripheral edema. Lymphatic: No signs of lymphangitis. Musculoskeletal: Left elbow; incision with superficial dehiscence, no active drainage, no exposed tendon, muscle, bone, no signs of infection Contralateral exam is nontender with palpation. Full motion and strength. No instabilities. XRAYS: None IMPRESSION: Wound dehiscence left elbow PLAN: Clinical images sent to Dr. Latif today. He recommends approximation with benzoin and Steri-Strips. He also recommends applying posterior long-arm splint in extension. We will make an appointment to see Dr. Latif or Kirk Whitten this coming week. Clifford Matthews PA-C Orthopaedic Trauma and Foot & Ankle Surgery [facility] [phone] *This note was generated using voice recognition technology. Unintentional errors may be present asa result. * Alicia Parra Ortho Tech - 05/13/2025 9:15 AM EDTAssociated Order(s): Cast application Cast application Date/Time: 05/13/2025 9:15 AM Performed by: Alicia Parra Ortho Tech Authorized by: Clifford Matthews PA Consent given by: patient Site marked: site marked Timeout: Immediately prior to procedure a time out was called to verify the correct patient, procedure, equipment, air support operations operator and site/side marked as required Injury Location details: left elbow Pre-procedure assessment neurovascularly intact Procedure Immobilization: splint Splint/Brace type: long leg Post-procedure assessment neurovascularly intact Patient tolerance: patient tolerated the procedure well with no immediate complications Comments Posterior long arm splint applied. Patient was left in full extension per Dr. Latif. Supplied used, 1-3 stock, 2-3 web, 1-3x35 scotchcast, 1-4 1-3 in areli wrap. Patient understands there should be no flexion of his elbow until he follows up. No complications. documented in this encounter Miscellaneous Notes * Addendum Note - Alicia Parra Ortho Tech - 05/13/2025 9:15 AM EDTAddended by: ALICIA PARRA on: 05/13/2025 10:01 AM Modules accepted: Orders documented in this encounter Plan of Treatment Scheduled Orders Name Type Priority Associated Diagnoses Orde r Schedule NM SERVICES PROVIDED OFFICE OTH/THN REG SCHED HOURS NM Charge Routine Left arm pain Status post surgery Ordered: 05/13/2025 NM APPLICATION LONG ARM SPLINT SHOULDER HAND NM Charge Routine Status post surgery Ordered: 05/13/2025 NM CAST SUP LNG ARM SPLINT FBRG NM Charge Routine Status post surgery Ordered: 05/13/2025 documented as of this encounter Goals Goal [...] peripheral neuropathy weekly. Refer to PCP and/or Sole Cementer, Vascular Specialist as indicated. Monitor patient compliance with wound care, diabetes management and proper offloading. documented as of this encounter Procedures Procedure Name Priority Date/Time Associated Diagnosis Comments CAST APPLICATION Routine 05/13/2025 9:15 AM EDT Status post surgery documented in this encounter Results * Cast application (05/13/2025 9:15 AM EDT) Narrative [facility] - 05/13/2025 9:15 AM EDT Alicia Parra Repairer And Checker 05/13/2025 10:00 AM Cast application Date/Time: 05/13/2025 9:15 AM Performed by: Alicia Parra, Repairer And Checker Authorized by: Clifford Matthews PA Consent given by: patient Site marked: site marked Timeout: Immediately prior to procedure a time out was called to verify the correct patient, procedure, equipment, air support operations operator and site/side marked as required Injury Location details: left elbow Pre-procedure assessment neurovascularly intact Procedure Immobilization: splint Splint/Brace type: long leg Post-procedure assessment neurovascularly intact Patient tolerance: patient tolerated the procedure well with no immediate complications Comments Posterior long arm splint applied. Patient was left in full extension per Dr. Latif. Supplied used, 1-3 stock, 2-3 web, 1-3x35 scotchcast, 1-4 1-3 in areli wrap. Patient understands there should be no flexion of his elbow until he follows up. No complications. Clifford MATAMOROS PROCEDURE/MINOR SURGICAL ORDERA BLES Final Result Performing Organization Address City/State/[facility] Co de Phone Number [facility] documented in this encounter Visit Diagnoses Diagnosis Left arm pain- Primary Pain in limb Status post surgery documented in this encounter Care Teams Concrete Rubber Relationship Specialty Start Date End Date Alejandro Carlisle MD [address] [address] PCP - General Family Medicine 10/20/22 Antonino Tavarez DPM [address] [address] Electrodynamicist-Surgery, Foot & Ankle 10/21/16 documented as of this encounter
--- OUTSIDE RECORDS SUMMARY | 2025-05-17 09:30 | XMS_ITS | Encounter Summary ---
Author Organization [facility] Address [address] [place] [address] Care Team Providers Care Global Sales Director Name Role Phone Antonino Tavarez DPM Unavailable [phone] Alejandro Carlisle MD Primary Care Provider Reason for Visit * Reason Comments Follow-up Encounter Details Date Type Department Care Team (Late st Contact Info) Description 05/17/2025 9:30 AM EDT Office Visit [facility] [address] [place] [id number] Harinder Latif MD [address] [place] [address] Status post surgery (Primary Dx) Social History Tobacco Use Types Packs/Day Years Used Date Smoking Tobacco: Never Smokeless Tobacco: Never Tobacco Cessation:Counseling Given: Not Answered Alcohol Use Standard Drinks/Week Comments No 0 (1 standard drink = 0.6 oz pur e alcohol) [facility] Utilities Answer Date Recorded In the past 12 months has [employer] electric, gas, oil, or water company threatened to shut off services in your home? No 01/26/2024 Overall Financial Resource Strain (CARDIA) Answe r Date Recorded How hard is it for you to pa y for the very basics like food, housing, medical care, and heating? Not hard at all 01/26/2024 PHQ-2 Answer Date Recorded PHQ-2 Total Score 0 01/26/2024 [facility] of Occupat ional Health - Occupational Stress [...] things needed for daily living? No 09/17/2023 [facility] IP Transportation Answer D ate Recorded In [...] documented in this encounter Progress Notes * Harinder Latif MD - 05/17/2025 9:30 AM EDT Images from the original note were not included. Chief Complaint: Cubital Tunnel Release / Nerve Transposition / Decompression - Left and Carpal Tunnel Release - Left DOS: 04/27/2025 History: Patient returns today for postsurgical followup. Recently seen in walk-in's due to wound dehiscence. We instructed Nicanor to come in today for evaluation. We instructed Angelo to place into elbow extension splint to prevent flexion. Physical Exam : Wrist Incision is healed Elbow Incision is distal 50% of the wound with superficial dehiscence, no obvious signs of infection No signs of infection Neurologically intact Impression: Anticipated recovery, no concerns Plan: Will place an extension splint today. Discussed avoiding flexion of the elbow until his wound heals. No signs of infection. We are can have him send [employer] picture messages. We are happy to see him at any point time should issues or concerns arise Betadine and steri strips applied to elbow incision. He will send images via [employer] of the elbow weekly. and Hand & Upper Extremity Please note that this industrial commercial groundskeeper was created using voice recognition software. Any errors are unintentional and may be due to voice recognition industrial commercial groundskeeper. documented in this encounter Plan of Treatment [...] peripheral neuropathy weekly. Refer to PCP and/or Sustainability Coach, Vascular Specialist as indicated. Monitor patient compliance with wound care, diabetes management and proper offloading. documented as of this encounter Visit Diagnoses Diagnosis Status post surgery- Primary documented in this encounter Care Teams Global Sales Director Relationship Specialty Start Date End Date Alejandro Carlisle MD [address] [phone] PCP - General Family Medicine 10/20/22 Antonino Tavarez DPM [address] [phone] Dry Plasterer-Surgery, Foot & Ankle 10/21/16 documented as of this encounter
[2025-06-28 15:57] LABS: Hematocrit 42.0 % (42.0-52.0); Hemoglobin 13.3 g/dL (14.1-18.0); Immature Granulocytes % 0.5 %; Mean Corpuscular HGB Conc 31.7 g/dL (31.8-35.4); Mean Corpuscular Hemoglobin 29.1 pg (27.0-31.2); Mean Corpuscular Volume 91.9 fl (80-94); Nucleated Red Blood Cells % 0 %; Platelet Count 253 K/mm3 (142-424); Red Blood Count 4.57 M/mm3 (4.60-6.20); Red Cell Distribution Width-SD 48.6 fL; White Blood Count 7.7 K/mm3 (4.8-10.8)
[2025-06-28 17:07] LABS: Alanine Aminotransferase 23 U/L (12-78); Albumin Level 3.9 g/dl (3.5-5.0); Albumin/Globulin Ratio 1.2 (1.1-1.8); Alkaline Phosphatase 105 U/L (38-126); Anion Gap 12.2 mEq/L (5-15); Aspartate Amino Transferase 26 U/L (17-59); Bilirubin,Total 0.4 mg/dl (0.2-1.3); Blood Urea Nitrogen 18 mg/dl (9-20); Calcium 9.4 mg/dl (8.4-10.2); Carbon Dioxide 28 mmol/L (22.0-30.0); Chloride 98 mmol/L (98-107); Cholesterol 194 mg/dl (140-200); Creatinine,Serum 1.20 mg/dl (0.66-1.25); Estimated Glomerular Filt Rate 60 ml/min (>60); GFR (African American) 73 ML/MIN (>60); Globulin 3.3 g/dL (1.3-3.2); Glucose 261 mg/dl (74-100); HDL Cholesterol 29 mg/dl (40-60); Potassium 5.2 mmoL/L (3.5-5.1); Sodium 133 mmol/L (136-145); Total Protein,Serum 7.2 g/dl (6.3-8.2); Triglycerides 312 mg/dl (30-150)
--- OUTSIDE RECORDS SUMMARY | 2025-06-30 10:43 | XMS_ITS | Encounter Summary ---
Author Organization [facility] Address [address] [place] [address] Care Team Providers Care Public Health Social Worker Name Role Phone Antonino Tavarez DPM Unavailable [phone] Alejandro Carlisle MD Primary Care Provider [phone] Encounter Details Date Type Department Care Team (Late st Contact Info) Description 05/15/[address] [address] Harinder Latif MD [address] [place] [address] Social History Tobacco Use Types Packs/Day Years Used Date Smoking Tobacco: Never Smokeless Tobacco: Never Alcohol Use Standard Drinks/Week Comments No 0 (1 standard drink = 0.6 oz pur e alcohol) [facility] Utilities Answer Date Recorded In the past 12 months has [employer] electric, gas, oil, or water [employer] threatened to shut off services in your home? No 01/26/2024 Overall Financial Resource Strain (CARDIA) Answe r Date Recorded How hard is it for you to pa y for the very basics like food, housing, medical care, and heating? Not hard at all 01/26/2024 PHQ-2 Answer Date Recorded PHQ-2 Total Score 0 01/26/2024 [facility] of Occupat ional Health - Occupational Stress [...] things needed for daily living? No 09/17/2023 [facility] IP Transportation Answer D ate Recorded In [...] Tali Easton RN documented in this encounter Miscellaneous Notes * Telephone Encounter - Melissa Graves Athletic Trainer - 05/15/2025 4:19 PM EDT Spoke with pharmacy, no other pain medications will be prescribed by Dr. Latif at this time. LVM forpatient. Patient just received pain medication refill from another provider (stronger than what prescribes). Patient also signed consent stating Dr. Latif gives one prescription, no refills. No other pain medications will be prescribed by Dr. Latif at this time. * Telephone Encounter - Alicia Dorman, Clerical Staff - 05/15/2025 9:17 AM EDT BIENVENIDO GARCIA FROM [facility] IN [facility]: PT IS CURRENTLY ON PERCOCET 10 MG PT JUST PICKED UP A QTY 120 ON 05/10/25 FROM ANOTHER PROVIDER PLEASE ADVISE documented in this encounter Plan of Treatment [...] peripheral neuropathy weekly. Refer to PCP and/or Utilization Management Um Nurse, Vascular Specialist as indicated. Monitor patient compliance with wound care, diabetes management and proper offloading. documented as of this encounter Visit Diagnoses Not on filedocumented in this encounter Care Teams Public Health Social Worker Relationship Specialty [place] [address] [place] [phone] PCP - General Family Medicine 10/20/22 Antonino Tavarez DPM [address] [place] [phone] Sanitary Napkin Machine Tender-Surgery, Foot & Ankle 10/21/16 documented as of this encounter
--- OUTSIDE RECORDS SUMMARY | 2025-06-30 10:43 | XMS_ITS | Encounter Summary ---
Author Organization [facility] Address [address] [place] [address] Care Team Providers Care Block Mason Name Role Phone Antonino Tavarez DPM Unavailable [phone] Alejandro Carlisle MD Primary Care Provider [phone] Reason for Visit * Reason Onset Date Comments Medication Refill 05/14/2025 Encounter Details Date Type Department Care Team (Late st Contact Info) Description 05/14/2025 [place] [address] Harinder Latif MD [address] [place] [address] Medication Refill Social History Tobacco Use Types Packs/Day Years Used Date Smoking Tobacco: Never Smokeless Tobacco: Never Alcohol Use Standard Drinks/Week Comments No 0 (1 standard drink = 0.6 oz pur e alcohol) [facility] Utilities Answer Date Recorded In the past 12 months has [employer], gas, oil, or water [employer] threatened to shut off services in your home? No 01/26/2024 Overall Financial Resource Strain (CARDIA) Answe r Date Recorded How hard is it for you to pa y for the very basics like food, housing, medical care, and heating? Not hard at all 01/26/2024 PHQ-2 Answer Date Recorded PHQ-2 Total Score 0 01/26/2024 [facility] [place] of Occupat ional Health - Occupational Stress [...] things needed for daily living? No 09/17/2023 [facility] IP Transportation Answer D ate Recorded In [...] Assessment Author Yes 01/31/2024 10:20 AM Tali Villanueva RN * Does this person have difficulty dressing or bathing? Answer Date of Assessment Author No 01/31/2024 10:20 AM Tali Villanueva RN * Because of a physical, mental or emotional condition, does this person have difficulty doing errands alone such as visiting a doctor's office or shopping? Answer Date of Assessment Author Yes 01/31/2024 10:20 AM Tali Villanueva RN documented as of this encounter Mental Status * Because of a physical, mental or emotional condition, does this person have serious difficulty concentrating, remembering or making decisions? Answer Entry Date Author No 01/31/2024 10:20 AM Tali Villanueva RN documented in this encounter Ordered Prescriptions Prescription Sig Dispense Quantity Refills Last Filled Start Date End Date oxyCODONE (ROXICODONE) 5 mg Oral Tablet Take 1 Tablet by mouth every 4 hours as needed for Major Surgery/Trau ma (G89.18) for up to 10 doses. 10 Tablet 05/14/2025 documented in this encounter Plan of Treatment [...] peripheral neuropathy weekly. Refer to PCP and/or Cabinet Worker, Vascular Specialist as indicated. Monitor patient compliance with wound care, diabetes management and proper offloading. documented as of this encounter Visit Diagnoses Not on filedocumented in this encounter Discontinued Medications Medication Sig Discontinue Reason Start Date End Da te oxyCODONE (ROXICODONE) 5 mg Oral Tablet Take 1 Tablet by mouth every 4 hours as needed for Major Surgery/Trauma (G89.18) for up to 10 doses. Reorder 04/27/2025 05/14/2025 documented as of this encounter Care Teams Block Mason Relationship Specialty Start Date End Date Alejandro Carlisle MD [address] [phone] PCP - General Family Medicine 10/20/22 Antonino Tavarez DPM [address] [place] [phone] Regional Facilities Manager-Surgery, Foot & Ankle 10/21/16 documented as of this encounter
--- OUTSIDE RECORDS SUMMARY | 2025-06-30 10:43 | XMS_ITS | Clinical Summary ---
Author Organization [facility] Address [facility] [place] [address] Phone Care Team Providers Care Fishing Lure Assembler Name Role Phone Antonino Tavarez DPM Unavailable [phone] Alejandro Carlisle MD Primary Care Provider [phone] Allergies No known active allergies Medications HUMALOG KWIKPEN 200 unit/mL (3 mL) SubQ Insulin Pen Subcutaneous (Inject under the skin) 60 Units 3 times daily (with meals). 5 7 Active roPINIRole (REQUIP) 1 mg Oral Tablet Take 4 mg by mouth 3 times daily. Active oxyCODONE-aceta minophen (PERCOCET) 10-325 mg Oral Tablet Take 1 Tab by mouth every 4 hours as needed for Pain. 20 Tab 8 Active pregabalin (LYRICA) 200 mg Oral Capsule Take 200 mg by mouth 3 times daily. Active atorvastatin (LIPITOR) 40 mg Oral Tablet Take 40 mg by mouth nightly. 5 9 Active DULoxetine (CYMBALTA) 30 mg Oral Capsule, Delayed Release(E.C.) Take 30 mg by mouth daily. 3 Active meloxicam (MOBIC) 15 mg Oral TabletIndicatio ns:Carpal tunnel syndrome, left Take 1 Tablet by mouth daily. 30 Tablet 2 5 Active MOUNJARO 7.5 mg/0.5 mL SubQ Pen Injector once a week. 5 Active oxyCODONE (ROXICODONE) 5 mg Oral Tablet Take 1 Tablet by mouth every 4 hours as needed for Major Surgery/Trauma (G89.18) for up to 10 doses. 10 Tablet 5 Active Active Problems Problem Noted Date Diagnosed Date Carpal tunnel syndrome, left 04/05/2025 Cubital tunnel syndrome, left 04/05/2025 Cellulitis of left hand 01/25/2024 Chronic low back pain 01/25/2024 RLS (restless legs syndrome) 01/25/2024 Enterobacter sepsis 09/17/2023 NOEMI (acute kidney injury) 09/17/2023 Type 2 myocardial infarction 09/17/2023 Sepsis with acute renal fail ure, due to unspecified organism, unspecified acute renal failure type, unspecified whether septic shock present 09/16/2023 Acute encephalopathy 09/16/2023 Metabolic acidosis, increased anion gap (IAG) Sinus tachycardia 09/16/2023 History of wound infection 09/16/2023 Morbid obesity 08/04/2023 Hypertension associated with diabetes 07/30/2023 Hyperlipidemia associated with type 2 diabetes m ellitus 07/30/2023 Mood disorder 07/30/2023 Primary osteoarthritis of right knee 09/12/2022 Overview (09/12/2022): Added automatically from request for surgery [id number] Charcot foot due to diabetes mellitus 06/16/2019 Inflammatory neuropathy 11/06/2017 Type 2 diabetes mellitus wit h hyperglycemia, with long-term current use of insulin 08/28/2016 Amputation of great toe Contracture of right Achilles tendon Resolved Problems Problem Noted Date Diagnosed Date Resolved Date Diabetic ulcer of right heel with fat layer exposed 08/10/2023 10/16/2023 Diabetic foot ulcer with osteomyelitis 08/06/2023 10/16/2023 Diabetic ulcer of right heel associated with type 2 diabetes mellitus, with fat layer exposed 07/30/2023 10/16/2023 Diabetic ulcer of toe of rig ht foot associated with type 2 diabetes mellitus, with fat layer exposed 06/17/2021 08/24/2023 Ulcer of right foot due to t ype 2 diabetes mellitus 06/29/2019 04/27/2020 Overview (06/29/2019): Added automatically from request for surgery [id number] Diabetic ulcer of right midf oot associated with type 2 diabetes mellitus, with necrosis of muscle 03/24/2019 04/27/2020 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 03/04/2018 03/24/2019 Ulcer of left foot, with necrosis of bone 11/26/2017 10/08/2018 Skin ulcer of left great toe with necrosis of muscle 11/06/2017 10/08/2018 Abscess of right foot 08/31/20162018 Diabetic ulcer of toe of rig ht foot associated with type 2 diabetes mellitus, with fat layer exposed 08/28/2016 03/24/2019 Obesity 08/28/2016 01/25/2024 Uncontrolled type 2 diabetes mellitus with foot ulcer 04/27/2020 Non morbid obesity due to excess calories 01/25/2024 Abscess of left foot 019 Osteomyelitis of ankle or foot, acute, left 10/16/2023 Open wound of left foot with complication 10/16/2023 Encounters Date Type Department Care Team Description 05/17/2025 9:30 AM EDT Office Visit [facility] [address] [address] Harinder Latif MD Status post surgery (Primary Dx) 05/15/[address] [address] Harinder Latif MD 05/14/2025 Refill [place] [id number] Harinder Latif MD Medication Refill 05/13/2025 9:15 AM EDT Office Visit [facility] [address] [address] Clifford Matthews PA Left arm pain (Primary Dx); Status post surgery 05/10/2025 8:15 AM EDT Office Visit [facility] [address] [facility] [address] [place] [address] Eric Whitten APRN Carpal tunnel syndrome, left (Primary Dx); Cubital tunnel syndrome, left 04/27/2025 9:15 AM EDT - 04/27/2025 10:43 AM EDT Surgery [facility] [address] [place] [address] Harinder Latif MD CUBITAL TUNNEL RELEASE / NERVE TRANSPOSITION / DECOMPRESSION 04/27/2025 8:59 AM EDT Anesthesia Event [facility] [address] [place] [address] Jordan Cuevas MD Salyer, Corey L, ELECTRICAL LINE WORKER 04/27/2025 7:16 AM EDT - 04/27/2025 11:50 AM EDT Hospital Encounter [facility] SAME DAY SURGERY [address] [place] [address] Harinder Latif MD Type 2 diabetes mellitus with hyperglycemia, with long-term current use of insulin (HCC) (Primary Dx); Pre-op evaluation; Pre-op exam Discharge Disposition: Home or Self Care 04/27/2025 Telephone [facility] [address] [address] Harinder Latif MD 04/27/2025 Travel 04/26/2025 Telephone [facility] [address] [facility] [address] [place] [address] Naomie Parker MA Other 04/24/2025 Telephone [facility] [place] [address] [address] Harinder Latif MD Other 04/21/2025 7:03 AM EDT - 04/21/2025 11:59 PM EDT Hospital Encounter [facility] EKG [address] [place] [address] Pre-op exam Discharge Disposition: Home or Self Care 04/21/2025 6:25 AM EDT - 04/21/2025 7:02 AM EDT Hospital Encounter [facility] LABORATORY [address] [place] [address] Pre-op exam; Type 2 diabetes mellitus with hyperglycemia, with long-term current use of insulin (HCC); Pre-op evaluation Discharge Disposition: Home or Self Care 04/20/2025 Telephone [facility] [address] [place] [address] Harinder Latif MD 04/14/2025 Travel 04/05/2025 10:00 AM EDT Office Visit [facility] [address] [place] [address] Eric Whitten APRN Carpal tunnel syndrome, left (Primary Dx); Cubital tunnel syndrome, left; Primary osteoarthritis of left wrist 04/05/2025 Orders Only [facility] [address], [place] [address] Harinder Latif MD Cubital tunnel syndrome, left (Primary Dx); Carpal tunnel syndrome, left from Last 3 Months Immunizations Immunization Administration Dates Next Due Pneumococcal Conjugate Vaccine 20 Valent 023 Quadrivalent Influenza High Dose 09/17/2023 Surgical History Surgery Date Site/Laterality Comments BICEPS TENDON REPAIR Left FOOT SURGERY 08/31/2016 Right INCISION AND DRAINAGE RIGHT great toe; Surgeon: Antonino Tavarez DPM; Location: [facility]; Service: Podiatry TOE AMPUTATION 09/05/2016 Foot/Right RIGHT 1ST TOE AMPUTATION ; Surgeon: Antonino Tavarez DPM; Location: [facility]; Service: Podiatry TOE AMPUTATION 02/02/2018 Left AMPUTATION OF LEFT GREAT TOE ; Surgeon: Sean Bryan DPM; Location: [facility]; Service: Podiatry FOOT SURGERY 02/08/2018 Foot/Left LEFT FOOT DEBRIDEMENT WITH LEFT FIRST METATARSAL HEAD RESECTION AND DELAYED PRIMARY CLOSURE ; Surgeon: Sean Bryan DPM; Location: [facility]; Service: Podiatry SHOULDER SURGERY Right rotator cuff x2 KNEE SURGERY Right arthroscopy CARPAL TUNNEL RELEASE Bilateral EYE SURGERY Bilateral extraction cataracts with lens implant TOE SURGERY 05/06/2018 Foot/Left Partial left fifth metatarsal head excision; Surgeon: Sean Bryan DPM; Location: [facility]; Service: Orthopedics ACHILLES TENDON SURGERY 07/12/2019 Leg Lower/Right Right Achilles Tendon Lengthening; Surgeon: Sean Bryan DPM; [facility]; Service: Podiatry FOOT SURGERY 08/02/2023 Foot/Ankle/Right right FOOT INCISION AND DRAINAGE/DEBRIDEMENT; Surgeon: Tiffanie Butcher DPM; Location: [facility]; Service: Podiatry IR PICC INSERTION EQUAL OR > 5 YEARS 08/05/2023 IR PICC INSERTION EQUAL OR > 5 YEARS 08/05/2023 Marilyn Collins PA-C [facility] IR IR PICC INSERTION EQUAL OR > 5 YEARS 09/21/2023 IR PICC INSERTION EQUAL OR > 5 YEARS 09/21/2023 Naomie Purdy PA-C [facility] IR HAND SURGERY 01/26/2024 Hand/Wrist/Left radiocarpal arthrotomy, extensor tenosynovectomy of 2nd, 3rd, 4th compartments, Incision and drainage of complex abscess of left hand; Surgeon: Harinder Latif MD; Location: [facility]; Service: Hand ULNAR TUNNEL RELEASE 04/27/2025 Arm/Elbow/Left Left open carpal tunnel release, left Cubital Tunnel Release; Surgeon: Harinder Latif MD; Location: [facility]; Service: Hand CARPAL TUNNEL RELEASE 04/27/2025 Hand/Wrist/Left Surgeon: Harinder Latif MD; Location: [facility]; Service: Hand Medical History Medical History Date Comments Diabetes mellitus (HCC) Arthritis Neuropathy hands and feet. Hypertension Sciatica Shingles in the past. Restless leg Gout Anxiety Hyperlipidemia Neuropathy in diabetes (HCC) Osteoarthritis of right knee Heartburn Chronic pain Family History Medical History Relation Name Comments Asthma Father Cancer Mother brain Anesth Problems Neg Hx Relation Name Status Comments Father Mother Social History Tobacco Use Types Packs/Day Years Used Date Smoking Tobacco: Never Smokeless Tobacco: Never Tobacco Cessation:Counseling Given: Not Answered Alcohol Use Standard Drinks/Week Comments No 0 (1 standard drink = 0.6 oz pur e alcohol) [employer] Utilities Answer Date Recorded In the past 12 months has [employer], gas, oil, or water [employer] threatened to shut off services in your home? No 01/26/2024 Overall Financial Resource Strain (CARDIA) Answe r Date Recorded How hard is it for you to pa y for the very basics like food, housing, medical care, and heating? Not hard at all 01/26/2024 PHQ-2 Answer Date Recorded PHQ-2 Total Score 0 01/26/2024 [facility] Occupat ional [facility] - Occupational Stress Questionnaire Answer Date Recorded [...] things needed for daily living? No 09/17/2023 [facility] IP Transportation Answer D ate Recorded In the past 12 months, has l ack of reliable transportation kept you from medical appointments, meetings, work or from getting things needed for daily living? No 01/26/2024 Sex and Gender Information Value Date Recorded Sex Assigned at Not on file Legal Sex Male 4:02 PM EDT Gender Identity Not on file Sexual Orientation Not on file Obstetrics History Last Filed Vital Signs Vital Sign Reading Time Taken Comments Blood Pressure 123/52 04/27/2025 11:36 AM EDT Pulse 57 04/27/2025 11:36 AM EDT Temperature 36.2 C (97.2 F) 04/27/2025 11:43 AM EDT Respiratory Rate 16 04/27/2025 11:36 AM EDT Oxygen Saturation 95% 04/27/2025 11:36 AM EDT Inhaled Oxygen Concentration - - Weight 138.3 kg (305 lb) 04/14/2025 3:32 PM EDT Height 180.3 cm (5' 11 ) 04/14/2025 3:32 PM EDT Body Mass Index 42.54 04/14/2025 3:32 PM EDT Plan of Treatment Health Maintenance Due Date Last Done Comments Wellness Exam Medicare 1958 Lipids 1965 Diabetic Eye Exam 1973 Hepatitis C Screening 1973 Kidney Health: uACR 1973 Cologuard 2000 Colon Cancer Screening 2000 Colonoscopy 2000 FIT 2000 Sigmoidoscopy 2000 Virtual Colonography 2000 RSV or 60+ (1 - Risk 60-74 years 1-dose series) 2015 Zoster (2 of 3) 08/11/2017 06/16/2017 DTaP/TDaP/Td (3 - Td or Tdap) 03/29/2025 03/29/2015, 09/08/2013 COVID-19 Vaccine ( season) 2025 Influenza Vaccine (#1) 2025 , 09/17/2023, 07/24/2020, Additional history exists Hemoglobin A1c 10/22/2025 04/21/2025, 01/04, 07/31/2023, Additional history exists Kidney Health: eGFR 04/21/2026 04/21/2025, 01/31/2024, 01/30/2024, Additional history exists Hepatitis B Vaccine Completed 02/13/2014, 10/10/2013, 09/08/2013 Pneumococcal Vaccine 50+ Completed 09/17/2023, 05/06 Meningococcal B Vaccine Aged Out No l onger eligible based on patient's age to complete this topic Goals Goal Patient Goal Type Associated Problems Recent Progress Patient-Stated? Author Wound Healing General On track(2022 9:11 AM EST) Alyson Salcido, RN Note: Wound Care Goals #10, #11 [...] peripheral neuropathy weekly. Refer to PCP and/or Corporate Security Manager, Vascular Specialist as indicated. Monitor patient compliance with wound care, diabetes management and proper offloading. Medical Devices Implanted Type Area Blanket Maker Device Identifier Shelf Expiration Date Model / Serial / Lot Lens Implant Both Eyes Procedures Procedure Name Priority Date/Time Associated Diagnosis Comments CAST APPLICATION Routine 05/13/2025 9:15 AM EDT Status post surgery SCANNED RHYTHM STRIPS 04/28/2025 9:33 AM EDT INTRAOP AIRWAY PLACEMENT Routine 04/27/2025 9:08 AM EDT MA NEUROPLASTY &/TRANSPOS MEDIAN NRV CARPAL TUNNE 04/27/2025 9:00 AM EDT Carpal tunnel syndrome, left Cubital tunnel syndrome, left Special Needs sk MA NEUROPLASTY &/TRANSPOS MEDIAN NRV CARPAL TUNNE 04/27/2025 9:00 AM EDT Carpal tunnel syndrome, left Cubital tunnel syndrome, left Special Needs sk MA NEUROPLASTY &/TRANSPOSITION ULNAR NERVE ELBOW 04/27/2025 9:00 AM EDT Carpal tunnel syndrome, left Cubital tunnel syndrome, left Special Needs sk GLUCOSE METER POC Routine 04/27/2025 7: 31 AM EDT EK EKG 12 LEAD Routine 04/21/2025 7:03 AM EDT Pre-op exam HEMOGLOBIN A1C Routine 04/21/2025 6:55 AM EDT Type 2 diabetes mellitus with hyperglycemia, with long-term current use of insulin (HCC) Pre-op evaluation BASIC METABOLIC PANEL Routine 04/21/2025 6:55 AM EDT Pre-op exam from Last 3 Months Results * Cast application (05/13/2025 9:15 AM EDT) Narrative [facility] - 05/13/2025 9:15 AM EDT Claudia Dolan Ortho Tech 05/13/2025 10:00 AM Cast application Date/Time: 05/13/2025 9:15 AM Performed by: Claudia Dolan Ortho Tech Authorized by: Clifford Matthews PA Consent given by: patient Site marked: site marked Timeout: Immediately prior to procedure a time out was called to verify the correct patient, procedure, equipment, bilingual patient support caseworker and site/side marked as required Injury Location [...] elbow until he follows up. No complications. us Clifford MATAMOROS PROCEDURE/MINOR SURGICAL ORDERA BLES Final Result [facility] * SCANNED RHYTHM STRIPS (04/28/2025 9:33 AM EDT) Anatomical Region Laterality Modality Other 04/28/2025 9:33 AM EDT us Unknown Provider IMG ECG ORDERABLES Final Result * INTRAOP AIRWAY PLACEMENT (04/27/2025 9:08 AM EDT) Narrative [facility] - 04/27/2025 9:08 AM EDT Jan Oneil CRNA 04/27/2025 9:13 AM Intraop Airway Placement: Date/Time: 04/27/2025 9:08 AM Induction type: IV Mask size: Large adult Pre-Oxygenation: Ramping Mask ventilation: Not attempted Technique: Video laryngoscope Laryngoscope blade: Arias Blade size: 4 Grade view: I Airway type: ETT- cuffed Intubation assist devices: Stylet 14fr Airway location: Oral Device size: 7.5mm Secured at: 22 cm Secured by: Tape Measured from: Lips Placement verified: Auscultation, End tidal CO2, Fiberoptic scope visualization and Symmetric chest wall motion Condition: Atraumatic Insertion attempts: 1 Attempt 1 by: Manpreet Title: INTERNAL AUDIT MANAGER Jordan Cuevas MD MA ANESTHESIA Final Res ult Performing Organization Address [facility] de Phone Number [facility] [address] [place] [address] * GLUCOSE METER POC (04/27/2025 7:31 AM EDT) [facility] Glucose Meter POC 85 70 - 100 mg/dL 04/27/2025 7:32 AM EDT [facility] Sample Type Capillary 04/27/2025 7:32 AM EDT [facility] Patient Status Non-Critical Patient 04/27/2025 7:32 AM EDT [facility] Blood BLOOD SPECIMEN / Unknown 04/27/2025 7:31 AM EDT 04/27/2025 7:32 AM EDT Harinder Latif MD POINT OF CARE TEST ORDERABLES Final Result Performing Organization Address [facility] Co de Phone Number [facility] [address] [place] [address] * EK EKG 12 LEAD (04/21/2025 7:03 AM EDT) Anatomical Region Laterality Modality Electrocardiogra phy 04/21/2025 7:08 AM EDT Impressions 04/21/2025 11:28 AM EDT [facility] Test Date: 2025-04-21 Pat Name: RONNI CHAND Department: DEPID Room: Gender: Male Crib Clerk: [facility] : 1955 Requested By: KENRICK GARCÍA Order Number: [id number] Reading MD: Willie Ledesma MD Measurements Intervals [place] Rate: 68 P: 54 MA: 196 QRS: -24 QRSD: 93 T: 111 QT: 379 QTc: 405 Interpretive Statements SINUS RHYTHM INFERIOR MYOCARDIAL INFARCTION, PROBABLY OLD MODERATE T-WAVE ABNORMALITY, CONSIDER LATERAL ISCHEMIA Electronically Signed On 04-21-2025 11:28:32 EDT by Willie Ledesma MD Narrative Procedure Note Willie Ledesma MD - 04/21/2025 [facility] Date: 2025-04-21 Pat Name: RONNI ARTEAGADEN Department: DEPID Room: Gender: Male Crib Clerk: [facility] : 1955 Requested By: KENRICK GARCÍA Order Number: [id number] Reading MD: Willie Ledesma MD Measurements Intervals [place] Rate: 68 P: 54 MA: 196 QRS: -24 QRSD: 93 T: 111 QT: 379 QTc: 405 Interpretive Statements SINUS RHYTHM INFERIOR MYOCARDIAL INFARCTION, PROBABLY OLD MODERATE T-WAVE ABNORMALITY, CONSIDER LATERAL ISCHEMIA Electronically Signed On 04-21-2025 11:28:32 EDT by Willie Ledesma MD us Kenrick Feliz MD IMG ECG ORDERABLES Final Result * (ABNORMAL) HEMOGLOBIN A1C (04/21/2025 6:55 AM EDT) Hgb A1C 7.9(H) 4.2 - 5.6 % 04/21/2025 1:22 PM EDT [facility] [place] Est. Avg Glucose 180 mg/dL 04/21/2025 1:22 PM EDT [facility] [place] Blood VENOUS BLOOD / Unknown Venipuncture / Unknown 04/21/2025 6:55 AM EDT 04/21/2025 7:06 AM EDT Narrative [facility] - 04/21/2025 1:22 PM EDT REFERENCE RANGE: Normal: 4.0-5.6% Pre-diabetes: 5.7-6.4% Provisional diagnosis of diabetes: >6.4% Hgb F>10% and anything which shortens red cell survival, such as hemolytic anemia, or unstable hemoglobin variants such as HbSS, HbSC, or HbCC, will lower the HbA1c value associated with a given level of glycemic control. Roland Munoz ELECTRICAL LINE WORKER CHEMISTRY ORDERABLES Final R esult [facility] [address] [facility] , [place] [address] * (ABNORMAL) BASIC METABOLIC PANEL (04/21/2025 6:55 AM EDT) Sodium 135(L) 136 - 145 mmol/L 04/21/2025 10:06 AM EDT [facility] Potassium 4.5 3.5 - 5.0 mmol/L 04/21/2025 10:06 AM EDT [facility] Chloride 98 98 - 107 mmol/L 04/21/2025 10:06 AM EDT [facility] Total CO2 25 22 - 29 mmol/L 04/21/2025 10:06 AM EDT [facility] Anion Gap 12 7 - 16 mmol/L 04/21/2025 10:06 AM EDT [facility] Calcium 9.8 8.8 - 10.4 mg/dL 04/21/2025 10:06 AM EDT [facility] Glucose Lvl 211(H) 70 - 99 mg/dL 04/21/2025 10:06 AM EDT [facility] BUN 20 8 - 23 mg/dL 04/21/2025 10:06 AM EDT [facility] Creatinine 1.05 0.67 - 1.30 mg/dL 04/21/2025 10:06 AM EDT [facility] eGFR (CKD-EPIcr 2020) 77 >=60 mL/min/1.7 3 m2 04/21/2025 10:06 AM EDT [facility] Comment:Estimated GFR was ca lculated using the CKD-EPIcr (2020) equation refit without race. The equation is recommended by the National Kidney Foundation - [place] [employer] of Nephrology Task Force. Blood VENOUS BLOOD / Unknown Venipuncture / Unknown 04/21/2025 6:55 AM EDT 04/21/2025 7:06 AM EDT us Kenrick Feliz MD CHEMISTRY ORDERABLES Carey martin Result [facility] [address] [facility] , [place] [address] from Last 3 Months Insurance [place] [address] [place] [address] [place] [address] [place] [address] [place] Advance Directives For more information, please contact: [phone] * Full Code (Latest Code Status on File) Date Activated Date Inactivated Comments 01/25/2024 6:11 PM 01/31/2024 3:27 PM * Full Code Date Activated Date Inactivated Comments 09/16/2023 3:22 PM 09/21/2023 9:07 PM * Full Code Date Activated Date Inactivated Comments 09/16/2023 3:20 PM 09/16/2023 3:22 PM * Full Code Date Activated Date Inactivated Comments 07/30/2023 3:41 PM 08/06/2023 10:06 PM * Full Code Date Activated Date Inactivated Comments 07/30/2023 1:42 PM 07/30/2023 3:41 PM Care Teams Fishing Lure Assembler Relationship Specialty Start Date End Date Alejandro Carlisle MD [address] [address] PCP - General Family Medicine 10/20/22 Antonino Tavarez DPM [address] [address] Change Control Coordinator-Surgery, Foot & Ankle 10/21/16
--- OUTSIDE RECORDS SUMMARY | 2025-06-30 10:43 | XMS_ITS | Encounter Summary ---
Author Organization [facility] Address [address] [place] [address] Care Team Providers Care Shift Superintendent Caustic Cresylate Name Role Phone Antonino Tavarez DPM Unavailable [phone] Alejandro Carlisle MD Primary Care Provider [phone] Encounter Details Date Type Department Care Team (Late st Contact Info) Description 04/20/2025 Telephone [facility] [address] [place] [id number] Harinder Latif MD [address] [place] [address] Social History Tobacco Use Types Packs/Day Years Used Date Smoking Tobacco: Never Smokeless Tobacco: Never Alcohol Use Standard Drinks/Week Comments No 0 (1 standard drink = 0.6 oz pur e alcohol) [facility] Utilities Answer Date Recorded In the past 12 months has [employer], gas, oil, or water [employer] threatened to shut off services in your home? No 01/26/2024 Overall Financial Resource Strain (CARDIA) Answe r Date Recorded How hard is it for you to pa y for the very basics like food, housing, medical care, and heating? Not hard at all 01/26/2024 PHQ-2 Answer Date Recorded PHQ-2 Total Score 0 01/26/2024 [facility] Occupat ional Health - Occupational Stress [...] things needed for daily living? No 09/17/2023 [facility] IP Transportation Answer D ate Recorded In [...] encounter Miscellaneous Notes * Telephone Encounter - Naomie Parker MA - 04/21/2025 9:28 AM EDT Please send lab work to [facility] for patient. Thanks.If there is an issue please contactpatient. Thanks. * Telephone Encounter - Naomie Parker MA - 04/21/2025 9:26 AM EDT Disregard. [facility] surgery center. My bad! * Telephone Encounter - Naomie Parker MA - 04/21/2025 9:22 AM EDT Please contact patient if you are requiring him to have blood work done for surgery?? We did not order labs. * Telephone Encounter - Malcom Chacon MA - 04/20/2025 2:09 PM EDT pt wants lab order sent to [facility]. please advise documented in this encounter Plan of Treatment [...] peripheral neuropathy weekly. Refer to PCP and/or Nut Culler, Vascular Specialist as indicated. Monitor patient compliance with wound care, diabetes management and proper offloading. documented as of this encounter Visit Diagnoses Not on filedocumented in this encounter Care Teams Shift Superintendent Caustic Cresylate Relationship Specialty Start Date End Date Alejandro Carlisle MD [address] [address] PCP - General Family Medicine 10/20/22 Antonino Tavarez DPM [address] [address] Heavy Mobile Equipment Repairer-Surgery, Foot & Ankle 10/21/16 documented as of this encounter
--- OUTSIDE RECORDS SUMMARY | 2025-06-30 10:43 | XMS_ITS | Clinical Summary ---
Author Organization [facility] Address [address], [address] [place] [address] Care Team Providers Care Dental Assisting Instructor Name Role Phone Unavailable Primary Care Provider Unavailabl e Allergies No known active allergies Medications No known medications Active Problems No known active problems Social History Tobacco Use Types Packs/Day Years Used Date Smoking Tobacco: Never Smokeless Tobacco: Never Sex and Gender Information Value Date Recorded Sex Assigned at Not on file Legal Sex Male 8:26 AM EDT Gender Identity Not on file Sexual Orientation Not on file Plan of Treatment Not on file Insurance MEDICARE
--- OUTSIDE RECORDS SUMMARY | 2025-06-30 10:43 | XMS_ITS | Encounter Summary ---
Author Organization [facility] Address [address] [place] [address] Care Team Providers Care Home Care Consultant Name Role Phone Antonino Tavarez DPM Unavailable [phone] Alejandro Carlisle MD Primary Care Provider [phone] Encounter Details Date Type Department Care Team (Late st Contact Info) Description 04/27/[address] [address] Harinder Latif MD [address] [place] [address] Social History Tobacco Use Types Packs/Day Years Used Date Smoking Tobacco: Never Smokeless Tobacco: Never Alcohol Use Standard Drinks/Week Comments No 0 (1 standard drink = 0.6 oz pur e alcohol) [facility] Utilities Answer Date Recorded In the past 12 months has [employer] electric, gas, oil, or water [employer] threatened to shut off services in your home? No 01/26/2024 Overall Financial Resource Strain (CARDIA) Answe r Date Recorded How hard is it for you to pa y for the very basics like food, housing, medical care, and heating? Not hard at all 01/26/2024 PHQ-2 Answer Date Recorded PHQ-2 Total Score 0 01/26/2024 [facility] [place] of Occupat ional Health - Occupational Stress [...] things needed for daily living? No 09/17/2023 [facility] IP Transportation Answer D ate Recorded In [...] Encounter - Melissa Graves Athletic Trainer - 04/27/2025 10:51 AM EDT Spoke with pharmacy, ok to fill prescription. * Telephone Encounter - Alicia Dorman, Clerical Staff - 04/27/2025 10:37 AM EDTSummary: PHONE CALL PO SX 04/27/25 MALLORY CALLING FROM [facility] PT HAS A CHRONIC SCRIPT OF PERCOCET 10 FROM ANOTHER PROVIDER REQUESTING CONFIRMATION WITH FILLING THIS OXYCODONE PLEASE ADVISE documented in this encounter Plan [...] peripheral neuropathy weekly. Refer to PCP and/or Ground Worker, Vascular Specialist as indicated. Monitor patient compliance with wound care, diabetes management and proper offloading. documented as of this encounter Visit Diagnoses Not on filedocumented in this encounter Care Teams Home Care Consultant Relationship Specialty Start Date End Date Alejandro Carlisle MD [address] [id number] PCP - General Family Medicine 10/20/22 Antonino Tavarez DPM [phone] [facility] JOSE CARLOS [address] [place] [id number] [employer] Consultant-Surgery, Foot & Ankle 10/21/16 documented as of this encounter
== END 2025-06-28 23:59 ==
LOC: LAB.DROPOF 06-30 10:40
PROVIDERS: PCP Family Medicine; Visit Provider Family Medicine
DX: I25.10 Atherosclerotic heart disease of native coronary artery without angina pectoris (principal); E11.9 Type 2 diabetes mellitus without complications; Z12.5 Encounter for screening for malignant neoplasm of prostate
CPT/HCPCS: 80053; 80061; 82043; 82570; 85025; G0103